=== PATIENT | male | born 1945 | race Caucasian/White ===

== ENCOUNTER 2020-04-06 14:17 | Emergency (ER) | payer OTHER ==
[2020-04-06 15:40] LABS: Hemoglobin 14.7 g/dL (14.0-18.0); Mean Corpuscular HGB CONC 31.4 g/dL (32.0-36.0); Mean Corpuscular Hemoglobin 28.9 pg (27.0-31.0); Mean Corpuscular Volume 91.9 fL (78.0-98.0); Mean Platelet Volume 9.5 fL (7.4-10.4); Platelet Count 160 thou/uL (130-400); RBC Distribution Width 12.8 % (11.5-14.5); White Blood Cell (WBC) Count 5.1 thou/uL (4.8-10.8)
[2020-04-06 15:44] LABS: PTT 85.5 SEC (22.9-36.1); Prothrombin Time 50.7 sec (12.0-14.7)
[2020-04-06 15:53] LABS: INR-International Normal Ratio 5.7
[2020-04-06 15:57] LABS: Band 18 % (5-11); Lymphocytes 38 % (21-51); MDiff Complete? YES; Monocytes 12 % (0-10); Neutrophil 21 % (42-75); Reactive Lymphocytes 10 % (0-10)
[2020-04-06 15:59] LABS: ALT (SGPT) 29 U/L (8-55); AST (SGOT) 39 U/L (5-34); Albumin 4.1 g/dL (3.4-4.8); Alkaline Phosphatase 74 U/L (40-110); Anion Gap 15 mmol/L (10-20); BUN (Urea Nitrogen) 13 mg/dL (8.4-25.7); Bilirubin, Total 0.7 mg/dL (0.2-1.2); Calc. Creatinine Clearance 0 mL/min (70-130); Calcium 8.7 mg/dL (7.8-10.44); Carbon Dioxide 26 mmol/L (23-31); Chloride 103 mmol/L (98-107); Estimated GFR-MDRD 66; Potassium 4.5 mmol/L (3.5-5.1); Protein, Total 7.1 g/dL (5.8-8.1); Sodium 139 mmol/L (136-145)
[2020-04-06 16:03] LABS: Glucose 52 mg/dL (83-110)
[2020-04-06 16:19] LABS: CKMB 0.7 ng/mL (0-6.6)
--- NOTE | 2020-04-06 16:39 | RAD ---
CHEST ONE VIEW: 04/06/20 HISTORY: Cough. COMPARISON: Radiograph 02/29/20. FINDINGS: Heart size is moderately enlarged. Mild pulmonary venous congestion. No pneumothorax. No confluent ai r space consolidation. IMPRESSION: Cardiomegaly. Mild pulmonary venous congestion. POS: HOME
[2020-04-06 18:42] LABS: Troponin I 0.023 ng/mL (< 0.028)
== END 2020-04-06 20:23 | disposition home or self-care (01) ==
LOC: ERS 14:17
DX: R05 Cough (principal); K06.8 Other specified disorders of gingiva and edentulous alveolar ridge; R79.1 Abnormal coagulation profile; I10 Essential (primary) hypertension; E11.9 Type 2 diabetes mellitus without complications; I25.2 Old myocardial infarction; E78.5 Hyperlipidemia, unspecified; Z79.899 Other long term (current) drug therapy
CPT/HCPCS: 36415; 36416; 71045; 80053; 82553; 84484; 85025; 85610; 85730; 93005